=== PATIENT | male | born 1960 | race Caucasian/White ===

== ENCOUNTER 2016-11-18 14:38 | Emergency (ER) | payer OTHER ==
[~2016-11-18] VITALS: Ht 170.2 cm; Wt 77.1 kg
--- NOTE | 2016-11-18 14:46 | NUR ---
PT IS IN ROOM #2B. DR AC EVALUATED THE PT.
[2016-11-18] MEDS ORDERED: SILVER SULFADIAZINE 1% CREAM 50 GM TP ONE (15:00)
[2016-11-18] MEDS ORDERED: SILVER SULFADIAZINE 1% CREAM 25 GM TUBE TP ONE (15:10)
--- NOTE | 2016-11-18 15:31 | NUR ---
PT WAS D/C TO HOME AFTER ER MD EVALUATION. D/C INSTRUCTIONS GIVEN TO THE PT. DRESSING IS INTACT.
[2016-11-18 15:39] VITALS: BP 129/81
== END 2016-11-18 15:40 | disposition home or self-care (01) ==
LOC: ER 14:38
DX: T24.211A Burn of second degree of right thigh, initial encounter (principal); M25.552 Pain in left hip; X08.8XXA Exposure to other specified smoke, fire and flames, initial encounter; Y93.89 Activity, other specified; Y99.8 Other external cause status; Y92.89 Other specified places as the place of occurrence of the external cause
CPT/HCPCS: 16020; 73502; A4217; A4663

== ENCOUNTER 2017-08-01 15:27 | Emergency (ER) | payer OTHER ==
[~2017-08-01] VITALS: Ht 170.2 cm; Wt 74.8 kg
[2017-08-01] MEDS ORDERED: IBUPROFEN 800 MG TABLET (15:35)
--- NOTE | 2017-08-01 18:12 | NUR ---
Patient discharged to home in stable conditon. Written and verbal after care instructions given. Patient verbalizes understanding of instructions.
[2017-08-01] MEDS ORDERED: IBUPROFEN 600 MG TABLET PO ONE (18:15)
[2017-08-01] MEDS ORDERED: IBUPROFEN 600 MG TABLET ONE (18:26)
== END 2017-08-01 18:13 | disposition home or self-care (01) ==
LOC: ER 15:28
DX: S96.912A Strain of unspecified muscle and tendon at ankle and foot level, left foot, initial encounter (principal); S86.911A Strain of unspecified muscle(s) and tendon(s) at lower leg level, right leg, initial encounter; X50.9XXA Other and unspecified overexertion or strenuous movements or postures, initial encounter; Y93.89 Activity, other specified; Y92.89 Other specified places as the place of occurrence of the external cause; Y99.8 Other external cause status
CPT/HCPCS: 72040; 73562; 73600; 73620; 99284; A4663

== ENCOUNTER 2020-11-20 20:08 | Emergency (ER) | payer OTHER ==
[~2020-11-20] VITALS: Ht 170.2 cm; Wt 79.8 kg
[~2020-11-20 20:08] MED LIST: IBUPROFEN 800 MG TABLET
[2020-11-20] MEDS ORDERED: MUPI22OI TP (21:13)
[2020-11-20] MEDS ORDERED: HYDR-3980 PO (21:13)
[2020-11-20] MEDS ORDERED: SULF1TAB48 PO (21:13)
[2020-11-20] MEDS ORDERED: SILVER SULFADIAZINE 1% CREAM 25 GM TUBE TP ONE (21:34)
[2020-11-20] MEDS ORDERED: SILVER SULFADIAZINE 1% CREAM 50 GM TP ONE (21:45)
--- NOTE | 2020-11-20 21:54 | NUR ---
Patient given written and verbal discharge instructions. Patient verbalizes understanding of instructions. Patient is ambulatory with steady gait. Refuses offer of [facility] placement. Patient given list of available shelters in surrounding area.
== END 2020-11-20 21:54 | disposition home or self-care (01) ==
LOC: ER 20:15
DX: L98.9 Disorder of the skin and subcutaneous tissue, unspecified (principal); L97.521 Non-pressure chronic ulcer of other part of left foot limited to breakdown of skin; L97.511 Non-pressure chronic ulcer of other part of right foot limited to breakdown of skin; L08.9 Local infection of the skin and subcutaneous tissue, unspecified; B96.89 Other specified bacterial agents as the cause of diseases classified elsewhere; Z86.14 Personal history of Methicillin resistant Staphylococcus aureus infection; M25.561 Pain in right knee; Z59.0 Homelessness
CPT/HCPCS: 87070; 87077; A4663

== ENCOUNTER 2021-02-04 14:11 | Emergency (ER) | payer OTHER ==
[~2021-02-04] VITALS: Ht 170.2 cm; Wt 72.6 kg
[~2021-02-04 14:11] MED LIST changes: +HYDR-3980 PO; +MUPI22OI TP; +SULF1TAB48 PO
[2021-02-04] MEDS ORDERED: HYDROCODONE/APAP 10-325 MG TABLET PO ONE (15:00)
[2021-02-04] MEDS ORDERED: HYDROCODONE/APAP 10-325 MG TABLET ONE (15:15)
[2021-02-04] MEDS ORDERED: NEOMY/BACITRA/POLYMYXIN B OINT UD PACKET TP ONE (16:15)
[2021-02-04] MEDS ORDERED: HYDR-4209 PO (16:22)
[2021-02-04] MEDS ORDERED: IBUP-1955 PO (16:22)
[2021-02-04] MEDS ORDERED: CLIN300C12 PO (16:22)
--- NOTE | 2021-02-04 16:36 | NUR ---
PT WAS EVALUATED BY DR WORTHINGTON. PT WAS D/C'd TO HOME. D/C INSTRUCTIONS GIVEN TO THE PT BY DR WORTHINGTON.
[2021-02-04 16:38] VITALS: BP 126/76
== END 2021-02-04 16:40 | disposition home or self-care (01) ==
LOC: ER 14:12
DX: S91.105A Unspecified open wound of left lesser toe(s) without damage to nail, initial encounter (principal); X58.XXXA Exposure to other specified factors, initial encounter; Y92.89 Other specified places as the place of occurrence of the external cause; M19.071 Primary osteoarthritis, right ankle and foot; Z86.14 Personal history of Methicillin resistant Staphylococcus aureus infection; K08.89 Other specified disorders of teeth and supporting structures
CPT/HCPCS: 73660; A4663

== ENCOUNTER 2021-12-31 15:56 | Emergency (ER) | payer MEDICARE, OTHER ==
[~2021-12-31] VITALS: Ht 172.7 cm; Wt 78.5 kg
[~2021-12-31 15:56] MED LIST changes: +CLIN300C12 PO; +HYDR-4209 PO; +IBUP-1955 PO
--- NOTE | 2021-12-31 17:38 | NUR ---
Patient discharged to home in stable condition. Written and verbal after care instructions given. Patient verbalizes understanding of instructions. Stressed follow up or return to ER for worsening s/s.pt refuses pain meds
== END 2021-12-31 17:38 | disposition home or self-care (01) ==
LOC: ER 15:58
DX: M79.631 Pain in right forearm (principal); Z79.1 Long term (current) use of non-steroidal anti-inflammatories (NSAID); Z79.2 Long term (current) use of antibiotics; Z79.899 Other long term (current) drug therapy
CPT/HCPCS: 73090; A4663

== ENCOUNTER 2022-07-27 17:28 | Emergency (ER) | payer MEDICARE, OTHER ==
[~2022-07-27] VITALS: Ht 172.7 cm; Wt 70.3 kg
[~2022-07-27 17:28] MED LIST changes: -CLIN300C12 PO; -HYDR-3980 PO; -HYDR-4209 PO; -IBUPROFEN 800 MG TABLET; -MUPI22OI TP; -SULF1TAB48 PO
--- NOTE | 2022-07-27 19:05 | NUR ---
Received report from EMRE Harvey.
--- NOTE | 2022-07-27 19:08 | NUR ---
Dr. Nixon at bedside. MSE in progress.
[2022-07-27] MEDS ORDERED: HYDROCODONE/APAP 10-325 MG TABLET PO ONE (19:15)
[2022-07-27] MEDS ORDERED: SULFAMETH/TRIMETH 800/160 MG TABLET PO ONE (19:15)
[2022-07-27] MEDS ORDERED: SULFAMETH/TRIMETH 800/160 MG TABLET ONE (19:20)
[2022-07-27] MEDS ORDERED: HYDROCODONE/APAP 10-325 MG TABLET ONE (19:21)
--- NOTE | 2022-07-27 19:31 | NUR ---
Xray at bedside
[2022-07-27] MEDS ORDERED: SILV50CR32 TP (19:38)
[2022-07-27] MEDS ORDERED: HYDR-3980 PO (19:38)
[2022-07-27] MEDS ORDERED: SULF1TAB48 PO (19:38)
[2022-07-27] MEDS ORDERED: SILVER SULFADIAZINE 1% CREAM 50 GM TP ONE ×2 (19:59→20:00)
--- NOTE | 2022-07-27 20:15 | NUR ---
Patient discharged in stable condition. A/O x4. NAD noted. All belongings with patient. Ambulatory with a steady gait. Written and verbal after care instructions given. Patient verbalizes understanding of instructions. Stressed follow up or return to ER for worsening s/s.
[2022-07-27 20:19] VITALS: BP 130/89
== END 2022-07-27 20:15 | disposition home or self-care (01) ==
LOC: ER 17:28
DX: L98.499 Non-pressure chronic ulcer of skin of other sites with unspecified severity (principal); L97.511 Non-pressure chronic ulcer of other part of right foot limited to breakdown of skin; Z59.00 Homelessness unspecified; Z86.14 Personal history of Methicillin resistant Staphylococcus aureus infection; Z28.310 Unvaccinated for COVID-19; M19.90 Unspecified osteoarthritis, unspecified site
CPT/HCPCS: 73090; 73620; A4663

== ENCOUNTER 2022-09-23 13:25 | Emergency (ER) | payer MEDICARE, OTHER ==
[~2022-09-23] VITALS: Ht 172.7 cm; Wt 74.8 kg
[~2022-09-23 13:25] MED LIST changes: +HYDR-3980 PO; +SILV50CR32 TP; +SULF1TAB48 PO
[2022-09-23] MEDS ORDERED: CEphaleXIN 500 MG CAPSULE PO ONE (14:00)
[2022-09-23] MEDS ORDERED: SULFAMETH/TRIMETH 800/160 MG TABLET PO ONE (14:00)
[2022-09-23] MEDS ORDERED: IBUPROFEN 600 MG TABLET PO ONE (14:00)
[2022-09-23] MEDS ORDERED: CEphaleXIN 500 MG CAPSULE ONE (14:10)
[2022-09-23] MEDS ORDERED: SULFAMETH/TRIMETH 800/160 MG TABLET ONE (14:10)
[2022-09-23] MEDS ORDERED: IBUPROFEN 600 MG TABLET ONE (14:10)
[2022-09-23 14:13] LABS: HEMATOCRIT 39.8 % (36.7-47.1); MEAN CORPUSCULAR HEMOGLOBIN 29.5 uug (23.8-33.4); PLATELET COUNT (AUTO) 361 K/uL (152-348)
[2022-09-23 15:23] LABS: CREATININE 0.8 mg/dL (0.6-1.3); POTASSIUM 4.7 mmol/L (3.5-5.1)
--- NOTE | 2022-09-23 15:36 | NUR ---
Patient is resting comfortably in bed with eyes closed, NAD.
[2022-09-23] MEDS ORDERED: SULF1TAB48 PO (15:48)
[2022-09-23] MEDS ORDERED: CEPH500C2 PO (15:48)
[2022-09-23] MEDS ORDERED: IBUP-1955 PO (15:49)
--- NOTE | 2022-09-23 16:01 | NUR ---
Patient is resting comfortably in bed with eyes closed, NAD noted.
[2022-09-23] MEDS ORDERED: NEOMY/BACITRAC/POLYMI OINT 28.35 GM TUBE ONE (16:25)
[2022-09-23] MEDS ORDERED: MUPIROCIN 2% OINT 22 GM TUBE ONE (16:27)
[2022-09-23] MEDS ORDERED: MUPIROCIN 2% OINT 22 GM TUBE TP ONE (16:30)
--- NOTE | 2022-09-23 16:45 | NUR ---
Wound care provided, per MD order.
--- NOTE | 2022-09-23 17:01 | NUR ---
Patient given written and verbal discharge instructions. Patient verbalizes understanding of instructions, but refuses to sign d/c paperwork. Patient is ambulatory with steady gait. Refuses offer of detention placement. Patient given list of available shelters in surrounding area. Pt walked out of ER cursing and being volger toward nurses.
[2022-09-23 17:10] VITALS: BP 136/90
== END 2022-09-23 17:10 | disposition home or self-care (01) ==
LOC: ER 13:25
DX: S90.821A Blister (nonthermal), right foot, initial encounter (principal); L08.9 Local infection of the skin and subcutaneous tissue, unspecified; X58.XXXA Exposure to other specified factors, initial encounter; Y92.89 Other specified places as the place of occurrence of the external cause; M79.672 Pain in left foot; M79.671 Pain in right foot; Z86.14 Personal history of Methicillin resistant Staphylococcus aureus infection
CPT/HCPCS: 36415; 85025; A4663

== ENCOUNTER 2023-12-07 07:36 | Emergency (ER) | payer MEDICARE, OTHER ==
[~2023-12-07] VITALS: Ht 172.7 cm; Wt 70.3 kg
[~2023-12-07 07:36] MED LIST changes: +CEPH500C2 PO
[2023-12-07 08:20] VITALS: BP 142/79; TEMP 97.8; O2SAT 98
== END 2023-12-07 08:21 | disposition home or self-care (01) ==
LOC: ER 07:36
DX: R10.9 Unspecified abdominal pain (principal); Z79.899 Other long term (current) drug therapy; Z60.2 Problems related to living alone
CPT/HCPCS: A4606; A4663

== ENCOUNTER 2024-11-19 08:56 | Emergency (ER) | payer MEDICARE, OTHER ==
[~2024-11-19] VITALS: Ht 172.7 cm; Wt 77.1 kg
[2024-11-19] MEDS ORDERED: CEphaleXIN 500 MG CAPSULE ONE (09:42)
[2024-11-19] MEDS ORDERED: SULFAMETH/TRIMETH 800/160 MG TABLET ONE (09:43)
[2024-11-19] MEDS: SULFAMETH/TRIMETH 800/160 MG TABLET PO ONE (09:44)
[2024-11-19] MEDS: CEphaleXIN 500 MG CAPSULE PO ONE (09:44)
[2024-11-19 09:45] LABS: BASOPHILS % (AUTO) 0.3 % (0.0-2.0); EOSINOPHILS % (AUTO) 0.3 % (0.0-7.0); HEMATOCRIT 35.2 % (36.7-47.1); HEMOGLOBIN 12.2 g/dL (12.5-16.3); LYMPHOCYTES # (AUTO) 0.8 K/uL (0.8-4.8); LYMPHOCYTES % (AUTO) 9.7 % (20.5-51.5); MEAN CORPUSCULAR HGB CONC 35 g/dL (32.5-36.3); MEAN CORPUSCULAR VOLUME 89.2 fL (73.0-96.2); MONOCYTES # (AUTO) 0.7 K/uL (0.1-1.30); MONOCYTES % (AUTO) 8.8 % (0.0-11.0); NEUTROPHILS # (AUTO) 6.6 K/uL (1.8-8.9); NEUTROPHILS % (AUTO) 80.9 % (38.5-71.5); PLATELET COUNT (AUTO) 275 K/uL (152-348); RED BLOOD CELL COUNT(AUTO) 3.95 MIL/uL (4.06-5.63); RED CELL DISTRIBUTION WIDTH 14.5 % (12.1-16.2); WHITE BLOOD COUNT (AUTO) 8.1 K/uL (3.6-10.2)
[2024-11-19 09:50] LABS: CALCIUM 9.3 mg/dL (8.5-10.1); CREATININE 0.9 mg/dL (0.6-1.3); DIFFERENTIAL COMMENT 1; POTASSIUM 4.1 mmol/L (3.5-5.1)
[2024-11-19] MEDS ORDERED: CEPH500C2 PO (10:56)
[2024-11-19] MEDS ORDERED: HYDROCODONE/APAP 10-325 MG TABLET ONE (11:06)
[2024-11-19] MEDS: HYDROCODONE/APAP 10-325 MG TABLET PO ONE (11:09)
[2024-11-19] MEDS: diphenhydrAMINE 50 MG/1 ML VIAL IM ONE (12:27)
[2024-11-19] MEDS ORDERED: diphenhydrAMINE 50 MG/1 ML VIAL ONE (12:27)
[2024-11-19 12:32] VITALS: BP 155/92; O2SAT 99
== END 2024-11-19 12:33 | disposition home or self-care (01) ==
LOC: ER 08:56
DX: E87.1 Hypo-osmolality and hyponatremia (principal); D64.9 Anemia, unspecified; Z60.2 Problems related to living alone; Z88.7 Allergy status to serum and vaccine
CPT/HCPCS: 36415; 85025; A4606; A4663; J1200